=== PATIENT | female | born 1960 | race Caucasian/White ===

== ENCOUNTER → 2017-07-07 | Outpatient (REF) | payer OTHER ==
[2017-07-07 12:21] LABS: BASO # 0.1 10^3/uL (0.0-0.2); EOS # 0.4 10^3/uL (0.0-0.50); EOS % 7.6 % (0.0-3.0); HEMATOCRIT 42.5 % (36.0-47.0); HEMOGLOBIN 13.7 g/dl (12.0-16.0); IMMATURE GRANULOCYTE % 0.6 % (0-0); LYMPH # 1.6 10^3/uL (1.5-4.5); LYMPH % 31.5 % (24.0-44.0); MEAN CORPUSCULAR HEMOGLOBIN 27.8 pg (27.0-33.0); MEAN CORPUSCULAR HGB CONC 32.2 g/dl (32.0-36.5); MEAN CORPUSCULAR VOLUME 86.2 fl (80.0-96.0); MONO # 0.4 10^3/uL (0.0-0.8); NEUTROPHILS # 2.6 10^3/uL (1.8-7.7); NEUTROPHILS % 51.3 % (36.0-66.0); PLATELET COUNT, AUTOMATED 230 10^3/uL (150-450); RED BLOOD COUNT 4.93 10^6/uL (4.00-5.40); RED CELL DISTRIBUTION WIDTH 13.6 % (11.5-14.5)
[2017-07-07 12:25] LABS: ALBUMIN 4.1 GM/DL (3.2-5.2); ALBUMIN/GLOBULIN RATIO 1.17 (1.00-1.93); ALKALINE PHOSPHATASE 81 U/L (45-117); ALT/SGPT 26 U/L (12-78); ANION GAP 7 MEQ/L (8-16); AST/SGOT 18 U/L (7-37); BILIRUBIN,TOTAL 0.3 MG/DL (0.2-1.0); BLOOD UREA NITROGEN 16 MG/DL (7-18); CARBON DIOXIDE LEVEL 28 MEQ/L (21-32); CHLORIDE LEVEL 107 MEQ/L (98-107); CHOLESTEROL LEVEL 297 MG/DL (<200); CREATININE FOR GFR 0.97 MG/DL (0.55-1.30); GLOMERULAR FILTRATION RATE > 60.0 (>51); GLUCOSE, FASTING 89 MG/DL (70-100); HDL CHOLESTEROL 50 MG/DL (>40); LDL CHOLESTEROL 194.6 MG/DL (<100); NON-HDL-C 247 MG/DL; POTASSIUM SERUM 4.7 MEQ/L (3.5-5.1); SODIUM LEVEL 142 MEQ/L (136-145); TOTAL PROTEIN 7.6 GM/DL (6.4-8.2); TRIGLYCERIDES LEVEL 262 MG/DL (<150)
[2017-07-07 12:30] LABS: TOTAL 25(OH) VITAMIN D 20.1 NG/ML (30.0-100.0)
== END ==
LOC: M SFHCPLAZ 08:34
DX: Z00.00 Encounter for general adult medical examination without abnormal findings (principal); Z13.220 Encounter for screening for lipoid disorders; E55.9 Vitamin D deficiency, unspecified

== ENCOUNTER → 2017-07-20 | Outpatient (CLI) | payer OTHER | LOC: M WHC 12:28 | DX: Z12.31 Encounter for screening mammogram for malignant neoplasm of breast (principal) | CPT/HCPCS: 77067 ==

== ENCOUNTER → 2017-09-28 | Outpatient (REF) | payer OTHER ==
[2017-09-30 14:12] LABS: HPV HYBRID CAPTURE II Negative (Negative)
== END ==
LOC: M SFHCWAGY 11:34
DX: Z12.4 Encounter for screening for malignant neoplasm of cervix (principal)

== ENCOUNTER → 2018-02-20 | Outpatient (CLI) | payer OTHER | LOC: M WHC 10:56 | DX: N83.202 Unspecified ovarian cyst, left side (principal) | CPT/HCPCS: 76830 ==

== ENCOUNTER → 2018-04-16 | Outpatient (CLI) | payer OTHER | LOC: M WHC 10:15 | DX: N83.202 Unspecified ovarian cyst, left side (principal) | CPT/HCPCS: 76830 ==

== ENCOUNTER → 2018-09-06 | Outpatient (REF) | payer OTHER ==
[2018-09-06 17:16] LABS: CHOLESTEROL RISK RATIO 5.222 (<5)
[2018-09-06 17:23] LABS: FREE T4 1.19 NG/DL (0.76-1.46); THYROID STIMULATING HORMONE 0.842 uIU/ML (0.358-3.740)
[2018-09-07 11:02] LABS: CA 125 8.2 U/ML (<30.2)
== END ==
LOC: M SFHCLERA 10:45
PROVIDERS: ATTEND Family Medicine
DX: N83.202 Unspecified ovarian cyst, left side (principal); E78.5 Hyperlipidemia, unspecified

== ENCOUNTER → 2018-09-14 | Outpatient (CLI) | payer OTHER ==
--- NOTE | 2018-09-14 15:51 | REP ---
Abdominal right upper quadrant ultrasound for hepatic cysts: There are no comparisons. The gallbladder is collapsed. The the patient indicates that she had creamy under T this morning prior to the scan. The gallbladder wall is mildly thickened measuring up to 3.1 mm, likely secondary to the collapse. No definite cholelithiasis is identified, however the study is less sensitive. There is no intrahepatic biliary duct dilatation. The common biliary duct is not identified. The visualized hepatic parenchyma is unremarkable except for two left lobe cysts, one measuring 1.8 x 1.5 x 1.6 cm and the other measuring 0.9 x 0.7 x 1.0 cm. There is no right renal calculus, mass, cyst or hydronephrosis. The right kidney is normal size measuring 10.7 x 5.2 x 4.4 cm. Impression: There are two hepatic left lobe cysts as described. The gallbladder is collapsed and suboptimally evaluated. The patient indicates that she had cream entirety this morning. The common biliary duct is not identified. There is no intrahepatic biliary duct dilatation. Electronically Signed by Dashawn Olmos MD 09/14/2018 12:21 P
== END ==
LOC: M LRY 08:14
PROVIDERS: ATTEND Family Medicine
DX: K76.89 Other specified diseases of liver (principal); N83.202 Unspecified ovarian cyst, left side; K82.8 Other specified diseases of gallbladder

== ENCOUNTER → 2018-10-01 | Outpatient (REF) | payer OTHER | LOC: M SFHCWAGY 09:56 | PROVIDERS: ATTEND Nurse Practitioner Family | DX: Z12.4 Encounter for screening for malignant neoplasm of cervix (principal) ==

== ENCOUNTER → 2018-10-01 | Outpatient (CLI) | payer OTHER ==
--- NOTE | 2018-10-01 11:53 | REPMRS ---
Patient History The patient states she had a clinical breast exam in 09/2018. Family history of breast cancer at age 55 in mother, breast cancer in maternal grandmother, breast cancer and pancreatic cancer in maternal aunt, breast cancer in maternal aunt, ovarian cancer in maternal cousin. 3D TOMOSYNTHESIS WAS PERFORMED. Digital Woman Screen Mammo: October 01, 2018 - Exam #: [id number] Bilateral CC and MLO view(s) were taken. Technologist: Raven Devine, Technologist Prior study comparison: July 20, 2017, digital woman screen mammo performed at [facility]. August 01, 2014, digital woman screen mammo performed at [facility]. FINDINGS: The breast tissue is heterogeneously dense. This may lower the sensitivity of mammography. There has been no change in the appearance of the mammogram from the prior studies. There is a moderate amount of residual fibroglandular tissue which is fairly symmetric. There is no interval development of dominant mass, areas of architectural distortion, or clustered microcalcification typical of malignancy. Assessment: BI-RADS/ACR category 1 mammogram. Negative Mammogram. Recommendation Routine screening mammogram in 1 year (for women over age 40). This mammogram was interpreted with the aid of an FDA-approved computer-aided dectection system. THE LIFETIME RISK OF BREAST CANCER IS 21.6%, THEREFORE SUPPLEMENTAL SCREENING MRI OF THE BREASTS IS RECOMMENDED. Electronically Signed By: Dashawn Almaguer MD 10/01/18 [id number]
== END ==
LOC: M WHC 09:34
PROVIDERS: ATTEND Nurse Practitioner Family
DX: Z12.31 Encounter for screening mammogram for malignant neoplasm of breast (principal); Z80.3 Family history of malignant neoplasm of breast

== ENCOUNTER → 2018-10-15 | Outpatient (REF) | payer OTHER | LOC: M SFHCWAGY 14:05 | PROVIDERS: ATTEND Nurse Practitioner Women's Health | DX: R87.615 Unsatisfactory cytologic smear of cervix (principal) ==

== ENCOUNTER → 2019-03-27 | Outpatient (CLI) | payer OTHER ==
[2019-03-27 12:53] LABS: CREATININE FOR GFR 1.02 MG/DL (0.55-1.30); GLOMERULAR FILTRATION RATE 58.8 (>45)
[2019-03-27 13:05] LABS: TOTAL 25(OH) VITAMIN D 23.6 NG/ML (30.0-100.0)
== END ==
LOC: M LRY 08:50
PROVIDERS: ATTEND Internal Medicine Hematology & Oncology
DX: Z01.812 Encounter for preprocedural laboratory examination (principal); Z80.3 Family history of malignant neoplasm of breast; E55.9 Vitamin D deficiency, unspecified

== ENCOUNTER → 2019-04-02 | Outpatient (CLI) | payer OTHER ==
[~2019-04-02] MED LIST: PROHANCE 279.3MG/ML 5ML VIAL (A9576) As Ordered ONE
--- NOTE | 2019-04-02 13:58 | REP ---
MRI BILATERAL BREASTS WITH AND WITHOUT CONTRAST: Dense breasts, elevated lifetime risk of breast cancer 21.6%. Comparison mammogram 10/01/2018 and MRI 02/01/2018. TECHNIQUE: Multiple sequences obtained in the axial, coronal, and sagittal planes prior to and following the intravenous administration of 7 mL ProHance. Images are evaluated in the [employer] software including axial T1 fat sat post contrast images, subtraction images, color overlay images and MIP reconstruction images. Moderately extreme parenchymal pattern is again seen bilaterally. A few small cysts are again seen in the lateral right breast. Largest is 9 mm maximally. No axillary adenopathy is seen. There are two cysts seen in the left lobe of the liver unchanged. There is mild background parenchymal enhancement. There is no suspicious enhancing mass or morphologic abnormality in either breast. IMPRESSION: BI-RADS category 2 benign bilateral breast MRI. No suspicious enhancing mass or morphologic abnormality. Yearly supplemental screening MRI of the breast is recommended for patients with elevated lifetime risk of breast cancer 20% or greater, in addition to annual screening mammography. Electronically Signed by Dashawn Almaguer MD 04/02/2019 02:04 P
== END ==
LOC: M RAD 07:31
PROVIDERS: ATTEND Internal Medicine Hematology & Oncology
DX: Z80.3 Family history of malignant neoplasm of breast (principal); K76.89 Other specified diseases of liver; R92.2 Inconclusive mammogram; N60.11 Diffuse cystic mastopathy of right breast
CPT/HCPCS: A9576; C8908

== ENCOUNTER → 2019-10-31 | Outpatient (CLI) | payer OTHER ==
--- NOTE | 2019-10-31 15:07 | REPMRS ---
Patient History The patient states she had a clinical breast exam in October 2019. Family history of breast cancer at age 55 in mother, breast cancer in maternal grandmother, breast cancer and pancreatic cancer in maternal aunt, breast cancer in maternal aunt, ovarian cancer in maternal cousin. Digital Woman Screen Mammo: October 31, 2019 - Exam #: [id number] Bilateral CC and MLO view(s) were taken. Technologist: Magalys Moreno, Technologist Prior study comparison: October 01, 2018, bilateral digital woman screen mammo performed at [facility]. July 20, 2017, digital woman screen mammo performed at [facility]. August 01, 2014, digital woman screen mammo performed at [facility]. FINDINGS: The breast tissue is heterogeneously dense. This may lower the sensitivity of mammography. The Volpara volumetric breast density category is: C. There is a moderate amount of heterogeneously dense fibroglandular tissue which is fairly symmetric. There is no interval development of dominant mass, architectural distortion, or grouped microcalcification typical of malignancy. There has been no change in the appearance of the mammogram from the prior studies. 3-D tomosynthesis shows no additional findings. Assessment: BI-RADS/ACR category 1 mammogram. Negative Mammogram. Recommendation Breast MRI of both breasts in 6 months. Routine screening mammogram of both breasts in 1 year (for women over age 40). This patient's Lifetime Breast Cancer RIsk is estimated at 21.0 %. Annual screening Breast MRI scanniing is recommended for patient's whose lifetime risk assessment is over 20%. This mammogram was interpreted with the aid of an FDA-approved computer-aided dectection system. Electronically Signed By: Morgan Trimble MD 10/31/19 [id number]
== END ==
LOC: M WHC 13:52
PROVIDERS: ATTEND Nurse Practitioner Family
DX: Z12.31 Encounter for screening mammogram for malignant neoplasm of breast (principal); Z80.3 Family history of malignant neoplasm of breast

== ENCOUNTER → 2019-10-31 | Outpatient (REF) | payer OTHER | LOC: M SFHCWAGY 08:41 | PROVIDERS: ATTEND Nurse Practitioner Family | DX: Z12.4 Encounter for screening for malignant neoplasm of cervix (principal); N95.8 Other specified menopausal and perimenopausal disorders | CPT/HCPCS: 87624; G0123 ==

== ENCOUNTER 2020-01-17 11:06 | Day surgery (SDC) | payer OTHER ==
[~2020-01-17 11:06] MED LIST changes: -PROHANCE 279.3MG/ML 5ML VIAL (A9576) As Ordered ONE; +propofoL 200 MG/20 ML VIAL ONE
[2020-01-17] MEDS ORDERED: fentaNYL 100 MCG/2 ML INJECTION (J3010) ONE (13:19)
--- NOTE | 2020-02-12 11:34 | ROOR ---
Patient Name: Ayala Rutledge Procedure Date: 01/17/2020 11:52 AM Date of : 1960 Age: 59 Room: [facility] Gender: Female Note Status: Finalized Procedure: Colonoscopy Indications: Screening for colorectal malignant neoplasm Providers: Kasi SIMPSON MD Referring MD: Dilcia YOUSSEF MD Requesting Provider: Medicines: Monitored Anesthesia Care Complications: No immediate complications. Procedure: Pre-Anesthesia Assessment: - The heart rate, respiratory rate, oxygen saturations, blood pressure, adequacy of pulmonary ventilation, and response to care were monitored throughout the procedure. The Colonoscope was introduced through the anus and advanced to 5 cm into the ileum. The colonoscopy was performed without difficulty. The patient tolerated the procedure well. The quality of the bowel preparation was good. Findings: The perianal and digital rectal examinations were normal. Mild sigmoid diverticulosis and small internal hemorrhoids. The entire examined colon appeared normal on direct and retroflexion views. Impression: - Mild sigmoid diverticulosis and small internal hemorrhoids. - The entire colon is oterwise normal on direct and retroflexion views. - No specimens collected. Recommendation: - Repeat colonoscopy in 10 years for screening purposes. Kasi SIMPSON MD 01/17/2020 1:46:14 PM Number of Addenda: 0 Note Initiated On: 01/17/2020 11:52 AM Estimated Blood Loss: Estimated blood loss: none.
--- NOTE | 2020-02-12 11:34 | ROOR ---
Patient Name: Ayala Rutledge Procedure Date: 01/17/2020 11:51 AM Date of : 1960 Age: 59 Room: [facility] Gender: Female Note Status: Loading Supervisor Override Procedure: Upper GI endoscopy Indications: Functional Dyspepsia Providers: Kasi SERRATO MD Referring MD: Dilcia YOUSSEF MD Requesting Provider: Medicines: Monitored Anesthesia Care Complications: No immediate complications. Procedure: Pre-Anesthesia Assessment: - The heart rate, respiratory rate, oxygen saturations, blood pressure, adequacy of pulmonary ventilation, and response to care were monitored throughout the procedure. The Endoscope was introduced through the mouth, and advanced to the second part of duodenum. The upper GI endoscopy was accomplished without difficulty. Findings: Non-severe esophagitis was found at the gastroesophageal junction. Biopsies were taken with a cold forceps for histology. Scattered minimal inflammation characterized by erythema was found in the gastric antrum. Biopsies were taken with a cold forceps for histology. The examined duodenum was normal. Impression: - Mild esophagitis. Biopsied. - A very small intermittent hiatal hernia - Minimal gastritis. Biopsied. - Normal examined duodenum. Recommendation: - Follow an antireflux regimen. - Use Prilosec (omeprazole) 40 mg PO daily for 3 months. - Telephone endoscopist for pathology results in 2 weeks. Kasi Serrato MD Kasi SERRATO MD 01/17/2020 1:29:02 PM Number of Addenda: 0 Note Initiated On: 01/17/2020 11:51 AM Estimated Blood Loss: Estimated blood loss: none.
== END 2020-01-17 14:20 | disposition home or self-care (01) ==
LOC: M SDC 11:06
PROVIDERS: ATTEND Internal Medicine Gastroenterology
DX: Z12.11 Encounter for screening for malignant neoplasm of colon (principal); K57.30 Diverticulosis of large intestine without perforation or abscess without bleeding; K64.8 Other hemorrhoids; K20.9 Esophagitis, unspecified; K29.70 Gastritis, unspecified, without bleeding; K30 Functional dyspepsia; Z88.0 Allergy status to penicillin
CPT/HCPCS: 43239; 45378; 88305; J3010

== ENCOUNTER → 2020-04-09 | Outpatient (CLI) | payer OTHER ==
[~2020-04-09] MED LIST changes: +PROHANCE 279.3MG/ML 15ML VIAL As Ordered ONE; -propofoL 200 MG/20 ML VIAL ONE
--- NOTE | 2020-04-09 15:38 | REP ---
INDICATION: SCREENING FOR HIGH RISK BREAST CA FILE ROOM. Lifetime risk of breast cancer 21.0%. COMPARISON: MRI 04/02/2019, mammogram 10/31/2019. TECHNIQUE: Three Jessica MRI imaging was performed with a dedicated breast coil. Axial, coronal, and sagittal T1 and T2 weighted scans were obtained with and without fat saturation in the usual fashion. The study includes dynamically acquired post gadolinium-enhanced imaging with image subtraction. Maximum intensity projection and multi planar reformation imaging is included as well. This study is interpreted with the aid of [employer], an FDA approved computer aided detection (CAD) software program, on a dedicated breast MRI workstation. The gadolinium enhancement dose is 14 mL of intravenous ProHance. FINDINGS: There is a moderate amount of fibroglandular tissue symmetrically bilaterally. There are a few stable cysts less than 1 cm in diameter in the right breast. There is no axillary adenopathy. There is minor background parenchymal enhancement. There is no suspicious enhancing mass or morphologic abnormality. There are 2 cysts in the left lobe of the liver. IMPRESSION: BI-RADS category 2, benign bilateral breast MRI. There are few stable subcentimeter cysts in the right breast. There is no suspicious enhancing mass or morphologic abnormality. Yearly supplemental screening MRI of the breasts is recommended for patients with an elevated lifetime risk of breast cancer of 20% or greater, in addition to annual screening mammography, staggered every 6 months. <Electronically signed by Dashawn Almaguer > 04/09/20 [id number]
== END ==
LOC: M RAD 12:33
PROVIDERS: ATTEND Internal Medicine Hematology & Oncology
DX: Z80.3 Family history of malignant neoplasm of breast (principal); Z15.01 Genetic susceptibility to malignant neoplasm of breast
CPT/HCPCS: A9576; C8908

== ENCOUNTER → 2022-01-11 | Outpatient (REF) | payer OTHER | LOC: M SFHCLERA 10:58 | PROVIDERS: ATTEND Student in an Organized Health Care Education/Training Program | DX: Z12.4 Encounter for screening for malignant neoplasm of cervix (principal) | CPT/HCPCS: 87624; G0123 ==

== ENCOUNTER → 2023-03-29 | Outpatient (REF) | payer OTHER ==
[2023-03-29 12:30] LABS: ALBUMIN 4.1 G/DL (3.2-5.2); BILIRUBIN,TOTAL 0.5 MG/DL (0.3-1.2); CALCIUM LEVEL 9.4 MG/DL (8.3-10.6); CHOLESTEROL RISK RATIO 6.17 (<5); CREATININE FOR GFR 1.09 MG/DL (0.55-1.30); GLOMERULAR FILTRATION RATE 53.8 (>45); HDL CHOLESTEROL 55.9 MG/DL (>40); LDL CHOLESTEROL 241.1 MG/DL (<100); NON-HDL-C 289.1 MG/DL; POTASSIUM SERUM 4.4 MMOL/L (3.5-5.1); TOTAL PROTEIN 7.7 G/DL (5.7-8.2)
== END ==
LOC: M SFHCCLAY 08:58
PROVIDERS: ATTEND Nurse Practitioner Family
DX: Z00.00 Encounter for general adult medical examination without abnormal findings (principal); E78.5 Hyperlipidemia, unspecified; Z80.3 Family history of malignant neoplasm of breast

== ENCOUNTER → 2024-03-21 | Outpatient (REF) | payer MEDICARE, OTHER ==
[2024-03-21 17:55] LABS: BILIRUBIN,TOTAL 0.4 MG/DL (0.3-1.2); CALCIUM LEVEL 10.1 MG/DL (8.3-10.6); CHOLESTEROL RISK RATIO 6.41 (<5); CREATININE FOR GFR 1.11 MG/DL (0.55-1.30); GLOMERULAR FILTRATION RATE 52.5 (>45); HDL CHOLESTEROL 52.1 MG/DL (>40); LDL CHOLESTEROL 238.7 MG/DL (<100); NON-HDL-C 281.9 MG/DL; POTASSIUM SERUM 4.6 MMOL/L (3.5-5.1); TOTAL PROTEIN 7.3 G/DL (5.7-8.2)
[2024-03-21 19:01] LABS: HEMOGLOBIN A1c 5.7 % (4.0-6.0)
== END ==
LOC: M SFHCCLAY 11:45
PROVIDERS: ATTEND Nurse Practitioner Family
DX: Z00.00 Encounter for general adult medical examination without abnormal findings (principal); E78.5 Hyperlipidemia, unspecified; Z80.3 Family history of malignant neoplasm of breast; Z79.899 Other long term (current) drug therapy

== ENCOUNTER → 2024-12-25 | Outpatient (REF) | payer MEDICARE, OTHER ==
[2024-12-25 18:40] LABS: CALCIUM LEVEL 9.2 MG/DL (8.3-10.6); CARBON DIOXIDE LEVEL 30.0 MMOL/L (20-31); CHLORIDE LEVEL 103.0 MMOL/L (98-107); CREATININE FOR GFR 1.18 MG/DL (0.55-1.30); GLOMERULAR FILTRATION RATE 51.3 (>45); POTASSIUM SERUM 3.6 MMOL/L (3.5-5.1); SODIUM LEVEL 143.0 MMOL/L (136-145)
== END ==
LOC: M SFHCLERA 08:04
PROVIDERS: ATTEND Internal Medicine
DX: Z15.01 Genetic susceptibility to malignant neoplasm of breast (principal); Z80.3 Family history of malignant neoplasm of breast